=== PATIENT | male | born 1995 | race Caucasian/White ===

== ENCOUNTER 2024-11-04 21:05 | Emergency (ER) | payer OTHER, SELFPAY ==
[2024-11-04 21:06] VITALS: BP 130/82
--- NOTE | 2024-11-04 22:23 | ED.GENMED ---
History of Present Illness
General
Chief Complaint: Skin Surface Trauma
Source: patient
Exam Limitations: none
Time Seen by Provider: 11/04/24 22:02
History of Present Illness
History of Present Illness:
29-year-old male presents with laceration to plantar surface of left large toe he sustained today. He lost his balance fell backwards and the bottom of his toe scraped the edge of the stone fireplace. He had a flap type laceration. Last tetanus
unknown. No other complaints at this time
Past History
Past History
ED Past Medical History: None
ED Past Surgical History: Appendectomy
Social History
Tobacco: Non-smoker
Alcohol: None
Drug: None
Living: alone
Employment: Student
Phy Exam
Physical Exam
Physical Exam:
General: Well-appearing male no acute respiratory distress
Skin: 1 x 1 cm superficial flap type laceration plantar surface proximal portion left large toe not currently bleeding. Flap is well-approximated. No bone or tendon involvement. No contamination. Mild surrounding ecchymosis
Musculoskeletal exam: The dorsum of the left large toe is nontender without deformity
Neurologic: Good sensation left large
Course
Orders/Labs/Results
Orders:
Orders
11/04/24 22:22
Tetanus/Diphth/Acelpertussis [Adacel] 0.5 ml IM .ONCE ONE
Vital Signs
Initial and Last Documented VS:
Initial Vital Signs
Temp Pulse Resp BP Pulse Ox
98.1 F 76 16 130/82 99
11/04/24 21:06 11/04/24 21:06 11/04/24 21:06 11/04/24 21:06 11/04/24 21:06
Last Documented Vital Signs
Temp Pulse Resp BP Pulse Ox
98.1 F 76 16 130/82 99
11/04/24 21:06 11/04/24 21:06 11/04/24 21:06 11/04/24 21:06 11/04/24 21:06
MDM/Problems Addressed
Differential Diagnosis Includes:
Superficial avulsion/flap type laceration to plantar dorsalis left large toe. Considered sutures but not indicated. The wound was irrigated with saline and dried. Antibacterial ointment nonstick gauze and a gauze wrap was applied. Tetanus
vaccine updated wound care instructions were given stable for discharge
*Critical Care Note
Total Time (30-74mins, 75-104mins- exclusive of procedures): Not Applicable
ED Attending Note
-
Portions of this chart may have been created with voice recognition software.� Occasional wrong word or��sound alike� substitutions may have occurred due to the inherent limitations of voice recognition software.
Discharge Plan
Departure
Patient Disposition: Home (Routine Discharge)
Date of Disposition: 11/04/24
Time of Disposition: 22:25
Patient with high blood pressure during this ER visit?: No
Discharge Problem:
Laceration
Instructions: Wound Care (DC)
Prescriptions:
No Action
ibuprofen 800 MG tablet
800 mg PO PRN PRN (Reason: pain)
clindamycin HCl 300 MG capsule
300 mg PO Q6 10 Days 0RF
hydrocodone-acetaminophen 1 TABLET tablet
1 tab PO Q4HPRN PRN (Reason: breakthrough pain) Qty: 10 0RF
prednisone 20 MG tablet
40 mg PO DAILY Qty: 8 0RF
Referrals:
Catherine Valle MD [Family Provider] -
Activity Restrictions/Additional Instructions:
Apply antibacterial Emon daily. Change dressing daily. Watch for signs of infection. Return if needed.
Interventions
Interventions:
*General Assessment Last Done: 11/04/24 21:06
*Neglect/Abuse Screening Last Done: 11/04/24 21:06
*ED COVID-19 Vaccine History Last Done: 11/04/24 21:06
ED-Skin Assessment Last Done: 11/04/24 21:55
Discharge Date and Time
Print Language: [place]IZ[place]
[2024-11-04] MEDS: ADACEL 0.5 ML IM (22:33)
== END 2024-11-04 23:05 | disposition home or self-care (01) ==
LOC: EMR 21:05
PROVIDERS: EMERGENCY PHYSICIAN Emergency Medicine; FAMILY PHYSICIAN Family Medicine
DX: S91.112A Laceration without foreign body of left great toe without damage to nail, initial encounter (principal); W45.8XXA Other foreign body or object entering through skin, initial encounter; Z23 Encounter for immunization; Z90.49 Acquired absence of other specified parts of digestive tract
CPT/HCPCS: 99282; 90471; 90715